=== PATIENT | male | born 1985 | race Two or more races ===

== ENCOUNTER 2017-05-29 22:34 | Emergency (ER) | payer MEDICAID ==
[~2017-05-29] VITALS: Ht 172.7 cm; Wt 81.6 kg
[2017-05-30 03:45] LABS: Basophils # (auto) 0.1 uL; Eosinophils # (auto) 0.2 uL; Eosinophils % (auto) 2.4 % (0.0-7.0); Hematocrit 47.5 % (41.0-53.0); Hemoglobin 16.2 g/dL (13.5-17.5); Lymphocytes # (auto) 2.7 uL; Lymphocytes % (auto) 35.8 % (10.0-50.0); Mean Corpuscular Hemoglobin 28.8 pg (28.0-32.0); Mean Corpuscular Hgb Conc. 34.1 g/dL (32.0-36.0); Mean Corpuscular Volume 84.3 fL (80.0-100.0); Monocytes # (auto) 0.6 uL; Monocytes % (auto) 8.1 % (0.0-12.0); Neutrophils % (auto) 52.7 % (37.0-80.0); Nucleated Red Blood Cells % 0.1 %; Platelet Count (auto) 244 10^3/uL (140-450); Red Blood Cells 5.63 10^6/uL (4.5-5.90); Red Cell Distribution Width 13.1 % (11.8-14.3); White Blood Cell 7.6 10^3/uL (4.4-10.8)
[2017-05-30 04:04] LABS: Calcium 8.7 mg/dL (8.5-10.1); Potassium 3.9 mmol/L (3.5-5.1)
[2017-05-30 04:06] LABS: Bilirubin, Total 0.2 mg/dL (0.2-1.0); Total Protein 7.5 g/dL (6.4-8.2)
[2017-05-30 04:30] VITALS: BP 125/72
[2017-05-30] MEDS ORDERED: HYDROcodone-ACET 10/325MG TAB PO ONE (05:00)
[2017-05-30] MEDS ORDERED: CEFTRIAXONE SODIUM 2 GM in D5W 5% 50 ML IV ONE (05:00)
[2017-05-30] MEDS ORDERED: cefTRIAXone SOD 1,000 MG VL ONE (05:06)
== END 2017-05-30 06:06 | disposition home or self-care (01) ==
LOC: ER 22:34
DX: J03.90 Acute tonsillitis, unspecified (principal); J06.9 Acute upper respiratory infection, unspecified
CPT/HCPCS: 36415; 80053; 85025; 96365; 99284; J0696; J7060

== ENCOUNTER 2017-11-01 23:08 | Emergency (ER) | payer MEDICAID, MEDICARE ==
[~2017-11-01] VITALS: Ht 172.7 cm; Wt 86.2 kg
[2017-11-01 23:40] VITALS: BP 128/85
== END 2017-11-02 02:43 | disposition home or self-care (01) ==
LOC: ER 23:09
DX: J03.00 Acute streptococcal tonsillitis, unspecified (principal)

== ENCOUNTER 2018-02-08 18:39 | Emergency (ER) | payer OTHER, MEDICAID ==
[~2018-02-08] VITALS: Ht 177.8 cm; Wt 81.6 kg
[2018-02-08 19:58] LABS: Salicylate < 1.7 mg/dL (2.8-20.0)
[2018-02-08 19:59] LABS: Alanine Aminotransferase 87 U/L (16-61); Albumin 4.7 g/dL (3.4-5.0); Anion Gap 6 (5-15); Aspartate Aminotransferase 42 U/L (15-37); Blood Alcohol < 3.0 mg/dL (0-5); Blood Urea Nitrogen 14 mg/dL (7-18); Carbon Dioxide 25 mmol/L (21-32); Chloride 106 mmol/L (98-107); GFR African American 86 mL/min; GFR Non-African American 71 mL/min; Glucose 144 mg/dL (74-106); Potassium 3.9 mmol/L (3.5-5.1); Sodium 137 mmol/L (136-145)
[2018-02-08 20:01] LABS: Alkaline Phosphatase 129 U/L (45-117); Bilirubin, Total 0.3 mg/dL (0.2-1.0); Total Protein 8.5 g/dL (6.4-8.2)
[2018-02-08 20:16] LABS: Acetaminophen < 2.0 ug/mL (10-30)
[2018-02-08 20:22] LABS: Basophils # (auto) 0 uL; Eosinophils # (auto) 0 uL; Lymphocytes # (auto) 1.4 uL; Monocytes # (auto) 0.6 uL; Monocytes % (auto) 5.3 % (0.0-12.0); Platelet Count (auto) 209 10^3/uL (140-450)
[2018-02-08 20:24] LABS: Basophils % (auto) 0.4 % (0.0-2.0); Eosinophils % (auto) 0.4 % (0.0-7.0); Hemoglobin 17.3 g/dL (13.5-17.5); Lymphocytes % (auto) 11.7 % (10.0-50.0); Mean Corpuscular Hemoglobin 28.7 pg (28.0-32.0); Mean Corpuscular Hgb Conc. 33.9 g/dL (32.0-36.0); Mean Corpuscular Volume 84.8 fL (80.0-100.0); Neutrophils # (auto) 9.9 uL; Neutrophils % (auto) 82.2 % (37.0-80.0); Nucleated Red Blood Cells % 0.1 %; Red Blood Cells 6.01 10^6/uL (4.5-5.90); Red Cell Distribution Width 13.5 % (11.8-14.3); White Blood Cell 12.1 10^3/uL (4.4-10.8)
[2018-02-09] MEDS ORDERED: ONDANSETRON HCL 4 MG/2 ML VIAL IV ONE (04:30)
[2018-02-09] MEDS ORDERED: SODIUM CHLORIDE 0.9% 1,000 ML IV ONE (04:30)
[2018-02-09 05:50] VITALS: BP 110/57
== END 2018-02-09 06:02 | disposition home or self-care (01) ==
LOC: ER 18:39 → EDBD 18:39 → ER 02-09 06:02
DX: R11.10 Vomiting, unspecified (principal); R41.82 Altered mental status, unspecified; R06.02 Shortness of breath
CPT/HCPCS: 36415; 80053; 80320; 80329; 85025; 96361; 96374; 99283; J2405; J7030